=== PATIENT | female | born 1985 | race African-American/Black ===

== ENCOUNTER 2022-01-28 21:38 | Emergency (ER) | payer BC ==
[~2022-01-28] VITALS: Ht 152.4 cm; Wt 74.4 kg
[2022-01-28] MEDS ORDERED: AMOXICILLIN/CLAVULANATE K 875 MG TAB PO STA (22:13)
[2022-01-28] MEDS ORDERED: IBUPROFEN 600 MG TAB PO STA (22:13)
[2022-01-28] MEDS ORDERED: AMOX TR-K CLV1 EAC2 PO (22:22)
[2022-01-28] MEDS ORDERED: IBUPROFEN600 MG PO (22:24)
[2022-01-28] MEDS ORDERED: AMOXICILLIN/CLAVULANATE K 875 MG TAB ONE (22:28)
[2022-01-28] MEDS ORDERED: IBUPROFEN 600 MG TAB ONE (22:28)
[2022-01-28 22:39] VITALS: BP 148/74
== END 2022-01-28 22:39 | disposition home or self-care (01) ==
LOC: FSED 22:05
DX: J01.90 Acute sinusitis, unspecified (principal); E11.9 Type 2 diabetes mellitus without complications; Z88.8 Allergy status to other drugs, medicaments and biological substances
CPT/HCPCS: 99282